=== PATIENT | male | born 1990 | race Caucasian/White ===

== ENCOUNTER 2021-07-25 20:50 | Emergency (ER) | payer OTHER ==
[~2021-07-25] VITALS: Ht 175.3 cm; Wt 115.9 kg
--- NOTE | 2021-07-25 20:53 | PHYS DOC ---
General Adult HPI: HPI: ".. I got up to turn on the air conditioner.. and got dizzy and passed out... I ve had this before when I get up too quick... :' Patient is a 31 year old male who presents with above hx and complaints dizziness and syncope upon rising quickly. Patient states he was feeling warm today and went to turn on the air conditioner and in the process he got up quickly and had onset of dizziness and syncope. Patient fell and hit head was not out that long approximately 1 to 2 minutes. No history of seizure activity. No history recent travel. Is a [id number]-[id number] dad. No specific ill contacts. Does not get flu vaccination does not get COVID vaccination. No recent travel. No specific ill contacts. Review of Systems: Review of Systems: Constitutional: Denies fever or chills Eyes: Denies change in visual acuity HENT: Denies nasal congestion or sore throat Respiratory: Denies cough or shortness of breath Cardiovascular: Denies chest pain or edema. Dizzy syncope and tachycardia. GI: Denies abdominal pain, nausea, vomiting, bloody stools or diarrhea : Denies dysuria Musculoskeletal: Denies back pain or joint pain Integument: Denies rash Neurologic: Denies headache, focal weakness or sensory changes Endocrine: Denies polyuria or polydipsia Lymphatic: Denies swollen glands Psychiatric: Denies depression or anxiety Family History: Family History: [id number] just Current Medications: Current Meds: See nursing for home meds Allergies: Allergies: No known drug allergies Physical Exam: PE: Constitutional: W, no acute distress, non-toxic appearance. [] HENT: Normocephalic, atraumatic, bilateral external ears normal, oropharynx moist, no oral exudates, nose normal. [] Eyes: PERRLA, EOMI, conjunctiva normal, no discharge. [] Neck: Normal range of motion, no tenderness, supple, no stridor. [] Cardiovascular:Heart rate regular rhythm, no murmur [] Lungs & Thorax: Bilateral breath sounds equal apex on auscultation [] Abdomen: Bowel sounds normal, soft, no tenderness, no masses, no pulsatile masses. [] Skin: Warm, dry, no erythema, no rash. [] Back: No tenderness, no CVA tenderness. [] Extremities: No tenderness, no cyanosis, no clubbing, ROM intact, no edema. [] Neurologic: Alert and oriented X 3, normal motor function, normal sensory function, no focal deficits noted. [] DTRs +2 patella and brachial. Digital Imager equal. Right-hand dominant. No drift. Amatory without problems. Psychologic: Affect anxious, judgement normal, mood normal. [] EKG: EKG: My interpretation EKG shows a sinus rhythm at 72 bpm. No acute morphology to her. Time of EKG is 2133. Repeat EKG showed no acute morphology. No acute interval change. Sinus rhythm at 74 bpm. Time of EKG is 2251 hrs. [] Radiology/Procedures: Radiology/Procedures: [[place] [address] IMAGING REPORT Signed PATIENT: NATE MARS ACCOUNT: [id number] : 1990 LOCATION: ER AGE: 31 SEX: M EXAM STATUS: REG ER ORD. PHYSICIAN: EVERETT OKEEFE MD REASON: syncope dyspnea PROCEDURE: PORTABLE CHEST 1V Exam: Chest one view INDICATION: Syncope, dyspnea TECHNIQUE: Frontal view which Comparisons: None FINDINGS: The cardiomediastinal silhouette and pulmonary vessels are within normal limits. The lung and pleural spaces are clear. IMPRESSION: No acute cardiopulmonary process. Electronically signed by: Marcellus Martinez MD (07/25/2021 9:56 PM) [facility] DICTATED AND SIGNED BY: MARCELLUS MARTINEZ MD DATE: 07/25/212155 CC: EVERETT OKEEFE MD; NON,STAFF ~ ]: 1990LOCATION: ERAGE: 31 SEX: M EXAM STATUS: REG ER ORD. PHYSICIAN: EVERETT OKEEFE MD REASON: syncope and fall , hit head and neck PROCEDURE: CT HEAD AND CERVICAL SPINE WO PQRS Compliance Statement: One or more of the following individualized dose reduction techniques were utilized for this examination: 1. Automated exposure control 2. Adjustment of the mA and/or kV according to patient size 3. Use of iterative reconstruction technique CT HEAD AND CERVICAL SPINE WITHOUT CONTRAST History: Reason: syncope and fall , hit head and neck / Spl. Instructions: / History: Comparison: None. Procedure: Axial images are obtained of the head from the skull base through the vertex without IV contrast. Noncontrast helical CT of the cervical spine was performed. Axial, sagittal, and coronal reconstructions were obtained. Findings: The ventricles and sulci are normal for the patient's age. No mass-effect, midline shift, hemorrhage or obvious acute infarction is identified. Basilar cisterns are patent. Bone windows demonstrate no significant calvarial abnormality. There are small mucous retention cyst or polyps in the bilateral maxillary sinuses. Mastoid air cells are well aerated. There is no evidence of acute fracture or acute malalignment of the cervical spine. There are no perched or jumped facet joints. The vertebral body height and alignment are maintained. The disc spaces are maintained. There is mild degenerative endplate spurring posteriorly at C3/C4 and anteriorly of C6/C7. Straightening of normal cervical lordosis may be positional or due to muscle spasm. Visualized soft tissues of the neck demonstrate no significant abnormalities. The visualized lung apices are clear. IMPRESSION: 1. No acute intracranial abnormality. 2. No acute fracture of the cervical spine. Electronically signed by: Mp Farrar MD (07/25/2021 9:39 PM) [facility] DICTATED AND SIGNED BY: MP FARRAR MD DATE: 07/25/212134 CC: EVERETT OKEEFE MD; NON,STAFF ~ Heart Score: C/O Chest Pain: N/A HEART Score for Chest Pain: HEART Score for Chest Pain Response (Comments) Value History Slighlty/Non-Suspicious 0 ECG Normal 0 Age < 45 0 Risk Factors No Risk Factors 0 Troponin < Normal Limit 0 Total 0 Risk Factors: Risk Factors: DM, Current or recent (<one month) smoker, HTN, HLP, family history of CAD, obesity. Risk Scores: Score 0 - 3: 2.5% MACE over next 6 weeks - Discharge Home Score 4 - 6: 20.3% MACE over next 6 weeks - Admit for Clinical Observation Score 7 - 10: 72.7% MACE over next 6 weeks - Early Invasive Strategies Course & Med Decision Making: Course & Med Decision Making Pertinent Labs and Imaging studies reviewed. (See chart for details) Followup with primary. Consider out pt tilt table testing and cardiac stress test. Currently work up negative for OR, PE or dysrhythmia. No findings of stroke on CT. Two negative Trop. test and EKG. Return if any concerns. If you vomit more than once on return home, will need re-exam. Impression: 1. Dizzy syncope 2. Fall 3. Head injury [] Dragon Disclaimer: Dragon Disclaimer: This electronic medical record was generated, in whole or in part, using a voice recognition dictation system. Departure Departure: Referrals: NON,STAFF (PCP) Dragon Disclaimer This chart was dictated in whole or in part using Voice Recognition software in a busy, high-work load, and often noisy Emergency Department environment. It may contain unintended and wholly unrecognized errors or omissions. EVERETT OKEEFE MD Jul 25, 2021 20:53
[2021-07-25] MEDS ORDERED: IV RINGERS SOLUTION,LACTATED 1,000 ML IV SCH (21:15)
[2021-07-25 21:41] LABS: BASO # 0.1 x10^3/uL (0.0-0.2); BASO % 1 % (0-3); EOS # 0.5 x10^3/uL (0.0-0.7); EOS % 4 % (0-3); HEMATOCRIT 44.4 % (39.0-53.0); HEMOGLOBIN 15.3 g/dL (13.0-17.5); LYMPH # 2.7 x10^3/uL (1.0-4.8); LYMPH % 25 % (24-48); MEAN CORPUSCULAR HEMOGLOBIN 29 pg (25-35); MEAN CORPUSCULAR HGB CONC 34 g/dL (31-37); MEAN CORPUSCULAR VOLUME 83 fL (79-100); MONO # 0.7 x10^3/uL (0.0-1.1); MONO % 7 % (0-9); NEUT # 6.8 x10^3uL (1.8-7.7); NEUT % 63 % (31-73); PLATELET COUNT 316 x10^3/uL (140-400); RED BLOOD COUNT 5.32 x10^6/uL (4.30-5.70); WHITE BLOOD COUNT 10.8 x10^3/uL (4.0-11.0)
--- NOTE | 2021-07-25 21:41 | RAD ---
PQRS Compliance Statement: One or more of the following individualized dose reduction techniques were utilized for this examinat ion: 1. Automated exposure control 2. Adjustment of the mA and/or kV according to patient size 3. Use of iterative reconstruction technique CT HEAD AND CERVICAL SPINE WITHOUT CONTRAST History: Reason: syncope and fall , hit head and neck / Spl. Instructions: / History: Comparison: None. Procedure: Axial images are obtained of the head from the skull base through the vertex without IV co ntrast. Noncontrast helical CT of the cervical spine was performed. Axial, sagittal, and coronal rec onstructions were obtained. Findings: The ventricles and sulci are normal for the patient's age. No mass-effect, midline shift, hemorrhage or obvious acute infarction is identified. Basilar cistern s are patent. Bone windows demonstrate no significant calvarial abnormality. There are small mucous retention cyst or polyps in the bilateral maxillary sinuses. Mastoid air cells are well aerated. There is no evidence of acute fracture or acute malalignment of the cervical spine. There are no perched or jumped facet joints. The vertebral body height and alignment are maintained. The disc spaces are maintained. There is mild degenerative endplate spurring posteriorly at C3/C4 and anteriorly of C6/C7. Straightening of normal cervical lordosis may be positional or due to muscle sp asm. Visualized soft tissues of the neck demonstrate no significant abnormalities. The visualized lung api juvencio are clear. IMPRESSION: 1. No acute intracranial abnormality. 2. No acute fracture of the cervical spine. Electronically signed by: Mp Farrar MD (07/25/2021 9:39 PM) [facility]
[2021-07-25 21:55] LABS: CALCIUM 9.2 mg/dL (8.5-10.1); CREATININE 0.9 mg/dL (0.7-1.3); GFR 99.8; POTASSIUM 3.7 mmol/L (3.5-5.1)
--- NOTE | 2021-07-25 21:58 | RAD ---
Exam: Chest one view INDICATION: Syncope, dyspnea TECHNIQUE: Frontal view which Comparisons: None FINDINGS: The cardiomediastinal silhouette and pulmonary vessels are within normal limits. The lung and pleural spaces are clear. IMPRESSION: No acute cardiopulmonary process. Electronically signed by: Marcellus Gilmore MD (07/25/2021 9:56 PM) [facility]
[2021-07-25 22:00] LABS: BARBITURATES NEG (NEG); BENZODIAZEPINES NEG (NEG); CANNABINOIDS NEG (NEG); COCAINE NEG (NEG); METHADONE NEG (NEG); OPIATES NEG (NEG); PHENCYCLIDINE NEG (NEG)
[2021-07-25 22:00] LABS: INFLUENZA A PATIENT NEGATIVE (NEGATIVE); INFLUENZA B PATIENT NEGATIVE (NEGATIVE)
[2021-07-25 22:02] LABS: AMPHETAMINE/METHAMPHETAMINE NEG (NEG)
[2021-07-25 22:04] LABS: CLARITY,URINE CLOUDY; COLOR,URINE YELLOW; GLUCOSE,URINE NEG (NEG)
[2021-07-25 22:05] LABS: BACTERIA,URINE FEW /HPF (0-FEW); NITRITE,URINE NEG (NEG); RBC,URINE 0 /HPF (0-2); SQUAMOUS EPITHELIAL CELL,UR OCC /LPF; UROBILINOGEN,URINE 0.2 mg/dL (0.2 mg/dL); WBC,URINE OCC /HPF (0-4)
[2021-07-25 22:06] LABS: DIRECT BILIRUBIN 0.1 mg/dL (0.0-0.2); TOTAL BILIRUBIN 0.3 mg/dL (0.2-1.0); TOTAL PROTEIN 7.2 g/dL (6.4-8.2)
--- NOTE | 2021-07-25 22:56 | EKG ---
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
--- NOTE | 2021-07-25 22:56 | EKG ---
[address] [address] Test Date: 2021-07-25 Test Time: 22:51:00 Pat Name: NATE MARS Department: Room: Gender: M Compensation And Hris Analyst: : 1990 Requested By: EVERETT OKEEFE Order Number: [id number] Reading MD: Measurements Intervals [place] Rate: 74 P: 38 ID: [id number] QRS: 42 QRSD: 96 T: 24 QT: 372 QTc: 413 Interpretive Statements SINUS RHYTHM NORMAL ECG RI6.01 No previous ECG available for comparison
[2021-07-25 23:45] VITALS: BP 124/72
== END 2021-07-25 23:52 | disposition home or self-care (01) ==
LOC: ER 20:50
DX: S09.90XA Unspecified injury of head, initial encounter (principal); R55 Syncope and collapse; Z20.822 Contact with and (suspected) exposure to COVID-19; W18.09XA Striking against other object with subsequent fall, initial encounter; Y93.89 Activity, other specified; Y92.89 Other specified places as the place of occurrence of the external cause; Y99.8 Other external cause status
CPT/HCPCS: 36415; 70450; 71045; 72125; 80048; 80076; 80307; 81001; 82550; 83690; 83735; 83880; 84443; 84484; 85025; 85379; 85610; 85730; 87428; 93005; 96360; 99285; J7120